=== PATIENT | male | born 2000 | race Two or more races ===

== ENCOUNTER 2021-03-13 21:08 | Emergency (ER) | payer MEDICAID ==
[~2021-03-13] VITALS: Ht 175.3 cm; Wt 73.0 kg
[2021-03-13] MEDS ORDERED: LORAZEPAM 1MG TABLET PO ONE (22:00)
[2021-03-13 23:09] LABS: BASOPHILS % 0.5 % (0.0-2.0); EOSINOPHILS % 0.1 % (0.0-5.0); HEMATOCRIT. 45.2 % (42.0-52.0); HEMOGLOBIN. 15.6 g/dL (14.0-18.0); LYMPHOCYTES % 14.7 % (20.0-50.0); MEAN CORPUSCULAR HEMOGLOBIN 29.6 pg (28.0-32.0); MEAN CORPUSCULAR VOLUME 85.5 fL (80.0-94.0); MEAN PLATELET VOLUME 6.8 fl (7.4-10.4); MONOCYTES % 8.3 % (2.0-8.0); NEUTROPHILS % 76.4 % (40.0-76.0); PLATELET 342 x1000/uL (130-400); RED BLOOD CELL COUNT 5.28 mill/uL (4.7-6.1); RED CELL DISTRIBUTION WIDTH 13.6 % (11.6-14.6)
[2021-03-13 23:23] LABS: CHLORIDE 110 mEq/L (98-107)
[2021-03-13 23:26] LABS: ETHANOL BLOOD < 10 mg/dL
[2021-03-14] MEDS ORDERED: OLANZAPINE 5MG TABLET PO SCH (09:00)
[2021-03-14] MEDS ORDERED: OLANZAPINE 5MG TABLET ODT PO ONE (21:45)
[2021-03-15] MEDS ORDERED: OLANZAPINE 5MG TABLET PO PRN (01:15)
[2021-03-15] MEDS ORDERED: ZIPRASIDONE HCL 20MG CAPSULE PO ONE (03:15)
[2021-03-15] MEDS: OLANZAPINE 5MG TABLET PO SCH ×2 (08:30→17:26)
[2021-03-15] MEDS ORDERED: HALOPERIDOL LACTATE 5MG/ML VIAL IM ONE (17:30)
[2021-03-15] MEDS ORDERED: LORAZEPAM 2MG/ML CPJ IM ONE (17:30)
[2021-03-16] MEDS: OLANZAPINE 5MG TABLET PO SCH ×2 (09:17→18:31)
[2021-03-17 03:51] LABS: CLARITY URINE CLEAR (CLEAR); COLOR URINE YELLOW (YELLOW); KETONES URINE 1+ (NEGATIVE); LEUKOCYTE ESTERASE URINE NEGATIVE (NEGATIVE); NITRITE URINE NEGATIVE (NEGATIVE); OCCULT BLOOD URINE NEGATIVE (NEGATIVE); PH URINE 5.5 (4.5-8.0); PROTEIN URINE NEGATIVE (NEGATIVE); UROBILINOGEN URINE 0.2 E.U./dL (0.2-1.0)
[2021-03-17 04:01] LABS: *AMPHETAMINES SCREEN URINE NEGATIVE (NEGATIVE); *BARBITURATES SCREEN URINE NEGATIVE (NEGATIVE); *BENZODIAZEPINES SCREEN URINE NEGATIVE (NEGATIVE); *COCAINE SCREEN URINE NEGATIVE (NEGATIVE); METHADONE URINE SCREEN NEGATIVE (NEGATIVE); OPIATES URINE SCREEN NEGATIVE (NEGATIVE)
[2021-03-17 04:02] LABS: CANNABINOID URINE SCREEN PRESUMTIVE POSITIVE (NEGATIVE); PHENCYCLIDINE URINE SCREEN NEGATIVE (NEGATIVE)
[2021-03-17 07:41] VITALS: BP 112/85
[2021-03-17] MEDS ORDERED: OLAN5TAB3 PO (08:45)
[2021-03-17] MEDS ORDERED: OLANZAPINE 5MG TABLET PO SCH (09:07)
== END 2021-03-17 09:41 | disposition home or self-care (01) ==
LOC: ER 21:08
DX: F20.9 Schizophrenia, unspecified (principal); R45.851 Suicidal ideations; F41.9 Anxiety disorder, unspecified; I49.9 Cardiac arrhythmia, unspecified; Z20.822 Contact with and (suspected) exposure to COVID-19; Z75.1 Person awaiting admission to adequate facility elsewhere; Z78.1 Physical restraint status
CPT/HCPCS: 36415; 80053; 80305; 80307; 80320; 80329; 81003; 85025; 93005; 96372; 99285; C9803; J1630; J2060; U0003; U0005; G0480